=== PATIENT | male | born 1935 | race Caucasian/White ===

== ENCOUNTER 2020-09-15 14:08 | Outpatient (CLI) | payer MEDICARE, OTHER, MEDICAID, SELFPAY ==
--- NOTE | 2020-09-15 14:23 | CT_ITS ---
WS: [id number] CT HEAD NONCONTRAST HISTORY: UNSPECIFIED HEARING LOSS TECHNIQUE: Contiguous axial imaging performed through the brain in 2.5 mm imaging. Bone and soft tiss ue windows. All CT scans at [facility] use at least one of these dose optimization techniq ues: automated exposure control; mA and/or kV adjustment per patient size (includes targeted exams wh ere dose is matched to clinical indication); or iterative reconstruction. DLP: 992.04 mGycm COMPARISON: None available. No acute intracranial hemorrhage, midline shift or mass effect. Mild atrophy and mild chronic microvascular ischemic disease. There is also mild bilateral cerebellar atrophy. No mass at the cerebellopontine angles. Ventricles: Normal size with no hydrocephalus. No fluid or increased soft tissue along the LEFT internal or external auditory canals. There is a sma ll amount of increased soft tissue in the RIGHT internal auditory canal and surrounding the inner ear ossicles. Paranasal sinuses: As visualized are clear. Mastoid air cells: Bilateral mastoiditis. Coalescence of air spaces on the LEFT. Fluid-filled mastoid air cells on the RIGHT. Calvarium and scalp: Skull is intact with no soft tissue edema or swelling. CT/CT head wo con* [id number] IMPRESSION: 1. No acute intracranial hemorrhage or edema. 2. Findings suspicious for chronic RIGHT otomastoiditis. There is increased fl uid in the RIGHT mastoid air cells with fluid or soft tissue extension into the internal auditory canal. Cholesteatoma is within the differential.
== END 2020-09-15 14:09 | disposition home or self-care (01) ==
LOC: RADWPI 14:18
PROVIDERS: PCP Family Medicine; Visit Provider Specialist
DX: H91.90 Unspecified hearing loss, unspecified ear (principal)
CPT/HCPCS: 70450